=== PATIENT | male | born 1990 | race African-American/Black ===

== ENCOUNTER 2023-12-21 20:25 | Emergency (ER) | payer OTHER ==
[2023-12-21 20:33] VITALS: BP 135/75; PULSE 91; RESP 18; TEMP 98.9; BMI 27.9
[2023-12-21] MEDS ORDERED: ACETAMINOPHEN 500 MG TABLET (FP) ONE (21:50)
[2023-12-21] MEDS: ACETAMINOPHEN 500 MG TABLET (FP) PO ONE (21:51)
== END 2023-12-21 22:42 | disposition left against medical advice (07) ==
LOC: JERFT 20:25
DX: S09.93XA Unspecified injury of face, initial encounter (principal); Y04.0XXA Assault by unarmed brawl or fight, initial encounter; Y99.0 Civilian activity done for income or pay
CPT/HCPCS: 99283-25